=== PATIENT | male | born 1995 | race Caucasian/White ===

== ENCOUNTER 2023-09-01 13:33 | Emergency (ER) | payer SELFPAY ==
[~2023-09-01] VITALS: Ht 182.9 cm; Wt 79.0 kg
[2023-09-01 13:42] VITALS: O2SAT 98
[2023-09-01] MEDS ORDERED: ACETAMINOPHEN 325MG TABLET PO ONE (14:45)
[2023-09-01] MEDS ORDERED: CYCL10TA21 MT (15:33)
[2023-09-01] MEDS ORDERED: IBUP-2029 MT (15:33)
[2023-09-01 15:57] VITALS: BP 137/72; PULSE 65; RESP 20; TEMP 98.6
== END 2023-09-01 16:31 | disposition home or self-care (01) ==
LOC: ER 14:00
DX: M54.50 Low back pain, unspecified (principal); V49.49XA Driver injured in collision with other motor vehicles in traffic accident, initial encounter; Y93.89 Activity, other specified; Y92.89 Other specified places as the place of occurrence of the external cause; Y99.8 Other external cause status
CPT/HCPCS: 72100; 99283